=== PATIENT | male | born 1990 | race Hispanic/Latino ===

== ENCOUNTER 2017-09-10 22:13 | Inpatient (IN) | payer BC ==
[2017-09-10 22:52] LABS: #Basophils 0.1 thou/uL (0.0-0.2); #Eosinphils 0.1 thou/uL (0.0-0.7); #Lymphocytes 2.4 thou/uL (1.20-3.40); #Monocytes 0.5 thou/uL (0.11-0.59); #Neutrophils 4.3 thou/uL (1.40-6.50); %Monocytes 6.5 % (0.0-10.0); %Neutrophils 58.4 % (42.0-75.0); Mean Corpuscular HGB CONC 32.4 g/dL (32.0-36.0); Mean Corpuscular Volume 92.6 fl (80.0-94.0); Mean Platelet Volume 7.4 fL (7.4-10.4); Platelet Count 298 thou/uL (130-400); RBC Distribution Width 12.8 % (11.5-14.5); White Blood Cell (WBC) Count 7.4 thou/uL (4.8-10.8)
[2017-09-10 23:12] LABS: Bilirubin Large (Negative); Blood, Urine Negative (Negative); Clarity CLOUDY (Clear); Glucose, Urine (Dipstick) Negative (Negative); Leukocyte Small (Negative); Nitrite Positive (Negative); Protein, Urine (Dipstick) Negative (Neg-Trace); Specific Gravity, Urine 1.023 (1.002-1.036); pH, Urine 5.5 (5.0-9.0)
[2017-09-10 23:16] LABS: Bacteria/HPF None Seen HPF (None Seen); Hyaline Casts/LPF 0-3 HYALINE CAST LPF (0-3 Hyaline); Pathc Cast-AUWi Flag 0.54 (0-2.49); Squamous Epithelial None Seen HPF (0-3)
[2017-09-10 23:21] LABS: ALT (SGPT) 626 U/L (8-55); AST (SGOT) 257 U/L (5-34); Albumin 4.3 g/dL (3.5-5.0); Alkaline Phosphatase 247 U/L (40-150); Anion Gap 17 mmol/L (10-20); BUN (Urea Nitrogen) 12 mg/dL (8.9-20.6); Bilirubin, Total 6.1 mg/dL (0.2-1.2); Calc. Creatinine Clearance 0 mL/min (70-130); Carbon Dioxide 26 mmol/L (22-29); Chloride 102 mmol/L (98-107); Estimated GFR-MDRD Greater than 90; Glucose 121 mg/dL (70-105); Potassium 3.6 mmol/L (3.5-5.1); Protein, Total 8.3 g/dL (6.0-8.3); Sodium 141 mmol/L (136-145)
[2017-09-11] MEDS ORDERED: Ondansetron HCl/PF 4 MG/2 ML Vial ONE (01:23)
[2017-09-11] MEDS ORDERED: Famotidine/PF 20 mg/2ml Vial ONE (01:24)
[2017-09-11] MEDS ORDERED: Morphine 4 MG/ML VIAL ONE (03:02)
[2017-09-11 03:56] LABS: HBCM Index 0.06 S/CO (0-0.79); HBSAg Index 0.18 S/CO (0-0.99); Hep A IgM AB Non-Reactive (NonReactive); Hep A IgM S/CO 0.14 S/CO (0-0.79); Hep B Surf Ag Non-Reactive S/CO (NonReactive); Hep C IgG Ab Non-Reactive (NonReactive); Hep C Index 0.07 S/CO (0-0.79); Hepatitis B Core IGM Abs Non-Reactive (NonReactive)
[2017-09-11] MEDS ORDERED: Ondansetron HCl/PF 4 MG/2 ML Vial IVP PRN (04:15)
[2017-09-11] MEDS ORDERED: Ondansetron ODT 4 MG TAB SL PRN (04:15)
[2017-09-11] MEDS ORDERED: Sodium Chloride 0.9% 1,000 ML IV SCH (04:15)
[2017-09-11] MEDS ORDERED: Acetaminophen 325 MG TAB PO PRN (04:15)
[2017-09-11 04:19] VITALS: BMI 47.0
--- NOTE | 2017-09-11 08:21 | ULT ---
PRELIMINARY REPORT/[facility]/EMERGENCY AFTER HOURS PROCEDURE: EXAM: US Abdomen Limited, Right Upper Quadrant CLINICAL HISTORY: 27 years old, male; Pain and signs and symptoms and abnormal findings; Abnormal lab test; Elevated li shabnam enzymes; Nausea and vomiting and other: Diarrhea; Abdominal pain; Other: Epigastric - radiating t o back TECHNIQUE: Real-time ultrasound of the right upper quadrant with image documentation. COMPARISON: No relevant prior studies available. FINDINGS: Limitations: Limited study due to bowel gas. Liver: Echogenic/fatty. Suboptimal visualization. Gallbladder: Mild sludge. No gallstones. No significant gallbladder wall thickening or pericholecysti c fluid. Positive Pineda's sign. Common bile duct: Dilated measuring up to 0.86 cm in diameter. Questionable sludge within the common bile duct. Pancreas: Obscured by bowel gas. Right kidney: No stones. No solid mass. No hydronephrosis. IMPRESSION: Dilated common bile duct with questionable sludge. Positive Pineda's sign. Mild gallbladder sludge. Thank you for allowing us to participate in the care of your patient. Dictated and Authenticated by: Oziel Jacobs MD 09/11/2017 2:21 AM Central Time ([place] & [place]) GALLBLADDER ULTRASOUND: FINAL REPORT FINDINGS/IMPRESSION: I agree with the preliminary report provided by Dr. Oziel Jacobs of [facility]. POS: [facility]
--- NOTE | 2017-09-11 08:24 | RAD ---
ACUTE ABDOMINAL SERIES: INDICATIONS: Intractable emesis with a history of ulcers. COMPARISON: Prior chest radiograph dated 01/19/2016. FINDINGS: The lungs are clear. The cardiomediastinal silhouette is normal. No pneumothorax or pleural effusio n is evident. No pneumoperitoneum is noted. There is some accentuated calcification seen within the region of the costal cartilage of the right l ower hemithorax. No suspicious calcification is seen overlying the renal collecting systems. The oswaldo wel gas pattern is unobstructed. No acute osseous abnormality is evident. IMPRESSION: No definite acute abnormality. POS: OFF
[2017-09-11] MEDS ORDERED: Milk Of Magnesia 30 ML UDCUP PO PRN (11:14)
[2017-09-11] MEDS ORDERED: Loperamide HCl 2 MG CAP PO PRN (11:14)
[2017-09-11] MEDS ORDERED: cefTRIAXone Sodium 1,000 MG in Syringe 0 ML IVPB SCH (11:14)
[2017-09-11] MEDS ORDERED: HYDROcodone/Acetaminophen 7.5/325 mg Tablet PO PRN (11:14)
[2017-09-11] MEDS ORDERED: hydrALAZINE 20 MG/ML VIAL SLOW IVP PRN (11:14)
--- NOTE | 2017-09-11 11:32 | HP ---
DATE OF ADMISSION: 09/11/2017 PRIMARY CARE PHYSICIAN: Dr. Gillespie. REASON FOR ADMISSION: Abdominal pain, nausea, vomiting. HISTORY OF PRESENT ILLNESS: This is a 27-year-old male with a history of ADHD and gastritis in the p ast, who came to the hospital with above complaints. Patient was evaluated and was found to have terrance vated liver enzymes, and abdominal ultrasound showed gallbladder surgery with dilated gallbladder and he is being admitted. The patient is feeling better with symptomatic medications. Denies any fever . He is complaining of diarrhea. No chest pain or palpitation. No skin rash. No back pain. He de nies any dysuria. He is on medication for fungal nail infection. HOME MEDICATIONS: Fluconazole and Vyvanse. ALLERGIES: No known drug allergies. PAST SURGICAL HISTORY: [place] tooth surgery. CODE STATUS: FULL. SOCIAL HISTORY: Denies any smoking, alcohol, or illicit drug abuse. FAMILY HISTORY: No history of any heart disease. REVIEW OF SYSTEMS: The following complete review of systems was negative, unless otherwise mentioned in the HPI or below: Constitutional: Weight loss or gain, marlon lity to conduct usual activities. Skin: Rash, itching. Eyes: Double vision, pain. ENT/Mouth: No se bleeding, neck stiffness, pain, tenderness. Cardiovascular: Palpitations, dyspnea on exertion, o rthopnea. Respiratory: Shortness of breath, wheezing, cough, hemoptysis, fever or night sweats. Ga strointestinal: Poor appetite, abdominal pain, heartburn, nausea, vomiting, constipation, or diarrhe a. Genitourinary: Urgency, frequency, dysuria, nocturia. Musculoskeletal: Pain, swelling. Neurol ogic/Psychiatric: Anxiety, depression. Allergy/Immunologic: Skin rash, bleeding tendency. PHYSICAL EXAMINATION: GENERAL: This is a morbidly obese male, in no apparent distress. VITAL SIGNS: Currently, temperature 97.6, pulse 67, respiratory rate 16, blood pressure 109/74. HEENT: Atraumatic, normocephalic. Oral mucosa is dry. NECK: Supple. CARDIOVASCULAR: S1, S2 heard. Rate and rhythm regular. RESPIRATORY: Clear. ABDOMEN: Soft. MUSCULOSKELETAL: No edema. DERMATOLOGIC: No skin rash.. NEUROLOGIC: Alert, awake, moving all the extremities. PSYCHIATRIC: Mood and affect normal. LABORATORY DATA: WBC 7.4, potassium 3.6, BUN is 12, creatinine 0.9, AST 257, ALT 626, albumin is 4.3 , lipase 23. UA with pyuria. ASSESSMENT AND PLAN: 1. Abdominal pain with nausea and vomiting with positive Pineda's sign in the ultrasound of his gall bladder. He will have symptomatic care. We will keep him n.p.o., IV fluids, pain control, nausea co ntrol. We will consult Surgery. 2. History of gastritis, seems to be stable. Continue on proton pump inhibitor for now. 3. Deep vein thrombosis prophylaxis. Continue on sequential compression devices. 4. Pyuria. We will check a urine culture and start Rocephin for now. Follow up cultures. Leukocyt osis reported. No dysuria. 6. Elevated liver enzymes, most likely from gallbladder stones and sludge and hepatitis panel was ne gative. 7. Morbid obesity. 8. History of attention deficit hyperactivity disorder. We will hold Vyvanse for now. 9. We will hold other medications and keep him n.p.o., IV fluids, and supportive care. Consult Surg steven. CODE STATUS: FULL. P.r.n. medications and further decision will be made based on the clinical cours e. We will closely monitor the patient in the hospital.
[2017-09-11] MEDS: Morphine 4 MG/ML VIAL SLOW IVP PRN ×2 (12:44→19:35)
[2017-09-11] MEDS: Sodium Chloride 0.9% 1,000 ML IV SCH ×2 (13:00→20:58)
[2017-09-11] MEDS: cefTRIAXone\\ROCEPHIN 1 GM, Syringe 0.4 ML in Sterile Water 9.6 ML SLOW IVP SCH (13:59)
--- NOTE | 2017-09-11 16:17 | CON ---
DATE OF CONSULTATION: 09/11/2017 GI INPATIENT CONSULTATION NOTE REQUESTING PHYSICIAN: Dr. Jennings. REASON FOR CONSULTATION: Biliary sludge and abnormal liver function tests. HISTORY OF PRESENT ILLNESS: Pat Mohan is a 27-year-old man with history of obesity and ADHD. I met him in 01/2016 for complaints of epigastric pain and nausea in the context of recent H. pylori treatment. I performed EGD in 01/2016 and this demonstrated a moderate amount of retained food in t he stomach, but actually normal appearing gastric mucosa. Gastric biopsy showed chronic gastritis, b ut were negative for H. pylori at that time. I had planned to get a gastric emptying study, but he d id not follow up for this. The patient tells me that since then he has generally done okay, but he h as continued to have episodic epigastric pain. He has been controlling this with his diet, pretty mu ch avoiding certain foods; however, he was admitted to the hospital early this morning after signific ant escalation of the pain associated with nausea. Upon presentation, he was found to have elevated LFTs. Note, LFTs were normal on my evaluation, a year and half ago, but now total bilirubin 6.1, ALT up to 626, AST 257. An abdominal ultrasound showed dilation of the common bile duct up to 8.6 mm as well as possible sludge in the common bile duct. There is sludge within the gallbladder, but the ga llbladder itself was nondilated. Pineda sign was positive. The patient is doing well with analgesia and antiemetics. He is currently feeling pretty comfortable. Dr. Jennings evaluated the patient and r ecommended Gastroenterology consultation for consideration of ERCP. REVIEW OF SYSTEMS: Full review of systems including constitutional, head, eyes, ears, nose, throat, GI, , cardiovascular, respiratory, musculoskeletal, and neurologic systems is negative except as no rogelio in the HPI. PAST MEDICAL HISTORY: ADHD, H. pylori gastritis treated 01/2016, obesity. ALLERGIES: No known drug allergies. OUTPATIENT MEDICATIONS: Vyvanse and fluconazole. SOCIAL HISTORY: No smoking, alcohol, or drug use. FAMILY HISTORY: Noncontributory. PHYSICAL EXAMINATION: VITAL SIGNS: Temperature 97.5, pulse 64, blood pressure 126/81, 95% oxygen saturation on room air. GENERAL: A 27-year-old man sitting in bed comfortably, in no acute distress. HEART: Regular rate and rhythm. LUNGS: Clear to auscultation bilaterally. ABDOMEN: Bowel sounds present, soft. Some mild tenderness to palpation in the epigastrium and right upper quadrant, but no guarding or rebound tenderness. EXTREMITIES: No peripheral edema. VESSELS: Radial pulses 2+ bilaterally. NEUROLOGICAL: Cranial nerves II-XII intact bilaterally. No focal deficits. SKIN: No jaundice, no rashes were palpable. EYES: No scleral icterus. Extraocular movements intact. ENT: Mucous membranes moist, no oral lesions. LYMPH: No submandibular or supraclavicular lymphadenopathy. THYROID: Nontender to palpation. LABORATORY STUDIES: WBC 7.4, hemoglobin 15, platelets 298. Sodium 141, potassium 3.6, BUN 12, creat inine 0.95, glucose 121, lipase only 23, total bilirubin 6.1, alk phosphatase 247, AST 257, ALT 626, albumin 4.3. Viral hepatitis serology is negative. ASSESSMENT AND PLAN: 1. Choledocholithiasis. 2. Elevated liver function tests. The patient has biliary sludge visualized in the gallbladder as w ell as in the common bile duct, biliary dilation, and acute LFT elevation, which is all consistent wi th choledocholithiasis. The patient will need ERCP for clearance of the common bile duct and will julio davis need cholecystectomy at some point as well. We will plan for ERCP tomorrow. I discussed the po tential risks of the procedure including post-ERCP pancreatitis. The patient desires to proceed. He can have clear liquids today, but will keep him n.p.o. after midnight for the procedure. Thank you for the consultation. Please call back with questions or concerns.
[2017-09-11] MEDS: Pantoprazole 40 MG VIAL IVP SCH (20:50)
--- NOTE | 2017-09-11 23:41 | CON ---
DATE OF ADMISSION: 09/11/2017 DATE OF CONSULTATION: 09/11/2017 REQUESTING PHYSICIAN: Dr. Cerda. REASON FOR CONSULTATION: Abdominal pain, abnormal liver function tests and ultrasound showing biliary sludge. HISTORY OF PRESENT ILLNESS: A 27-year-old male with history of ADHD and gastritis in the past who saw Dr. Mehdi Harper for treatment of H. pylori in 2015. At that time, EGD was performed. Since that time, he has continued to have periods of abdominal pain associated with food or alcohol intake. In the past few days, he has had increasing abdominal pain, especially with food intake , usually 1 hour after intake of food. Pain is usually relieved by vomiting, which again happens approximately 1 hour after ingestion of food. On admission , he had abdominal ultrasound, which showed dilation of the common bile duct to 8.6 mm and possible sludge in the common bile duct. There was also sludge within the gallbladder. LFTs: ALT 626, AST 257, total bilirubin 6.1. He reports tenderness in the epigastric and right upper quadrant. He is n.p.o. at this time and not currently experiencing abdominal pain. PAST MEDICAL HISTORY: ADHD, H. pylori, gastritis treated in 2016. PAST SURGICAL HISTORY: None. SOCIAL HISTORY: Alcohol, 3 beers and three shots each weekend. Tobacco, 5-6 cigarettes each weekend. Drugs, marijuana use. FAMILY HISTORY: Paternal grandfather with pancreatic cancer. REVIEW OF SYSTEMS: Review of systems was negative except as noted above in HPI. LABORATORY STUDIES: WBC 7.4, hemoglobin 15, platelets 298. Sodium 141, potassium 3.6, BUN 12, creatinine 0.95, glucose 121, lipase 23, total bilirubin 6.1, alkaline phosphatase 247, AST 257, ALT 626. DIAGNOSTIC IMAGING: Abdominal ultrasound findings, gallbladder with mild sludge. No significant gallbladder wall thickening or pericholecystic fluid. Positive Pineda sign. Common bile duct dilated measuring 0.86 cm in diameter. Questionable sludge within the common bile duct. No gallstones are seen on abdominal ultrasound. ASSESSMENT: 1. Abdominal pain. 2. Elevated liver function tests. 3. No gallstone seen on abdominal ultrasound; however, the patient has elevated liver function tests and common bile duct dilation. This is consistent with choledocholithiasis. PLAN: We recommend GI consult - Dr. Harper has been consulted. After speaking with Dr. Harper, he will take the patient to ERCP tomorrow for clearance of the common bile duct. We will re-evaluate after ERCP tomorrow for consideration of cholecystectomy. There is no urgent surgical intervention needed at this time. We will continue to follow with you. Thank you for this consult. The patient was reviewed with Dr. Jennings, attending trauma surgeon, who agrees with the assessment and plan. APOLLO
[2017-09-12 05:30] LABS: #Basophils 0.1 thou/uL (0.0-0.2); #Eosinphils 0.1 thou/uL (0.0-0.7); #Lymphocytes 3.4 thou/uL (1.20-3.40); #Monocytes 0.5 thou/uL (0.11-0.59); #Neutrophils 3.2 thou/uL (1.40-6.50); %Basophils 0.7 % (0.0-1.0); %Eosinophils 1.9 % (0.0-10.0); %Lymphocytes 47.2 % (21.0-51.0); %Monocytes 6.2 % (0.0-10.0); Hemoglobin 13.3 g/dL (14.0-18.0); Mean Corpuscular HGB CONC 31.9 g/dL (32.0-36.0); Mean Corpuscular Hemoglobin 29.8 pg (27.0-31.0); Mean Corpuscular Volume 93.3 fl (80.0-94.0); Mean Platelet Volume 7.5 fL (7.4-10.4); Platelet Count 241 thou/uL (130-400); RBC Distribution Width 12.8 % (11.5-14.5); Red Blood Cell (RBC) Count 4.46 mill/uL (4.70-6.10); White Blood Cell (WBC) Count 7.2 thou/uL (4.8-10.8)
[2017-09-12 05:42] LABS: ALT (SGPT) 441 U/L (8-55); AST (SGOT) 179 U/L (5-34); Albumin 3.5 g/dL (3.5-5.0); Alkaline Phosphatase 210 U/L (40-150); Anion Gap 12 mmol/L (10-20); BUN (Urea Nitrogen) 7 mg/dL (8.9-20.6); Bilirubin, Total 4.2 mg/dL (0.2-1.2); Calc. Creatinine Clearance 279 mL/min (70-130); Calcium 9.3 mg/dL (7.8-10.44); Carbon Dioxide 26 mmol/L (22-29); Chloride 104 mmol/L (98-107); Estimated GFR-MDRD Greater than 90; Globulin 3.2 g/dL (2.4-3.5); Glucose 86 mg/dL (70-105); Potassium 3.7 mmol/L (3.5-5.1); Protein, Total 6.7 g/dL (6.0-8.3); Sodium 138 mmol/L (136-145)
[2017-09-12] MEDS: Sodium Chloride 0.9% 1,000 ML IV SCH ×2 (07:12→15:37)
[2017-09-12] MEDS: Pantoprazole 40 MG VIAL IVP SCH ×2 (09:04→20:51)
--- NOTE | 2017-09-12 11:11 | PRG ---
DATE OF SERVICE: 09/12/2017 SUBJECTIVE: Mr. Mohan is awake and alert. He was admitted with abdominal pain. Diagnoses inclu eneida acute cholecystitis, cholelithiasis, and possible choledocholithiasis. ERCP is pending today. T he patient reports adequate pain control and denies any nausea or vomiting. OBJECTIVE: VITAL SIGNS: Today includes blood pressure 120/80, pulse 68, respiratory 16, maximum temperature in the last 24 hours is 98.0 degrees Fahrenheit, oxygen saturation 96% on room air. HEENT: Reveals normocephalic and atraumatic. The patient has no scleral icterus present. HEART: Reveals regular rate and rhythm. No murmurs or gallops auscultated. LUNGS: Clear to auscultation bilaterally. Breathing is regular and unlabored. ABDOMEN: Soft and obese. He has no significant tenderness to palpation at this time. Liver and spl een remain nonpalpable below costal margins. PERTINENT LABORATORY FINDINGS: Includes a CBC with 7200 white blood cells, hemoglobin 13.3, hematocr it is 41.6, platelet count is 241,000. Metabolic profile: Sodium 138, potassium is 3.7, chloride is 104, bicarbonate is 26, BUN 7, creatinine 0.71, glucose is 86. Total bilirubin is 4.2, AST and ALT 179 and 441 respectively. IMPRESSION: Acute cholecystitis, cholelithiasis, likely choledocholithiasis. PLAN: Laparoscopic cholecystectomy following ERCP. Above findings and plan discussed with the patie nt who indicates understanding of the information given. I answered all his questions.
[2017-09-12] MEDS ORDERED: Midazolam HCl 2 mg/2 ml Vial ONE ×2 (11:26→13:48)
[2017-09-12] MEDS ORDERED: Iothalamate Meglumine 60% 50 ML VIAL FS ONE ×2 (11:43→13:45)
[2017-09-12] MEDS ORDERED: Fentanyl 100 MCG/2 ML VIAL ONE ×2 (11:52→16:53)
[2017-09-12] MEDS ORDERED: Indomethacin 50 MG SUPP ONE (12:50)
[2017-09-12] MEDS: cefTRIAXone\\ROCEPHIN 1 GM, Syringe 0.4 ML in Sterile Water 9.6 ML SLOW IVP SCH (13:28)
[2017-09-12] MEDS ORDERED: PHENYLEPHRINE-NS 100 MCG/ML 10 ML SYRINGE ONE (13:35)
[2017-09-12] MEDS ORDERED: PROPOFOL 200 MG/20 ML VIAL ONE (13:35)
[2017-09-12] MEDS ORDERED: Succinylcholine Chloride 20 MG/ML 10 ml SYRINGE FS ONE (13:35)
[2017-09-12] MEDS ORDERED: Lidocaine 1% PF 5 ML VIAL ONE (13:35)
[2017-09-12] MEDS ORDERED: Ondansetron HCl/PF 4 MG/2 ML Vial ONE (13:36)
[2017-09-12] MEDS ORDERED: Dexamethasone 20 MG/5 ML VIAL ONE (13:36)
[2017-09-12] MEDS ORDERED: Ketorolac Tromethamine 30 MG/ML VIAL ONE (13:36)
[2017-09-12] MEDS ORDERED: Glycopyrrolate 0.2 MG/ML 5 ML SYRINGE ONE (13:36)
[2017-09-12] MEDS ORDERED: Bupivacaine/Epinephrine 0.25% 30 ML VIAL ONE (13:45)
--- NOTE | 2017-09-12 15:28 | RAD ---
ERCP: History: Biliary obstruction. Acute cholecystitis. FINDINGS: Intraoperative fluoroscopy is provided for ERCP. Single spot fluoroscopic image shows endoscopic cath eter overlying the duodenum. There is contrast opacification of a common duct that is upper limits of normal in caliber. Small rounded filling defects are present within the distal common duct, estimate d at 0.7 cm diameter. There is irregular elongated filling defect involving the left hepatic duct. POS: [facility]
[2017-09-12] MEDS ORDERED: traMADol HCl 50 MG TAB PO PRN (16:01)
[2017-09-12] MEDS ORDERED: Promethazine HCl 25 MG/ML VIAL SLOW IVP PRN (16:20)
[2017-09-12] MEDS ORDERED: Meperidine HCl/PF 25 MG/ML VIAL SLOW IVP PRN (16:20)
[2017-09-12] MEDS ORDERED: Morphine Sulfate 2 MG/ML SYRINGE SLOW IVP PRN (16:20)
[2017-09-12] MEDS ORDERED: HYDROmorphone 2 MG/ML VIAL SLOW IVP PRN (16:20)
--- NOTE | 2017-09-12 16:57 | OP ---
DATE OF PROCEDURE: 09/12/2017 SURGEON: Mehdi Harper M.D. FAMILY [employer] LEGAL ASSISTANT SURGEON: None. PROCEDURES: Endoscopic retrograde cholangiopancreatography with biliary sphincterotomy and stone ext raction. INDICATIONS: 1. Choledocholithiasis. 2. Elevated liver function tests. MEDICATIONS: 1. See anesthesia record. 2. Indomethacin 100 mg per rectum. FINDINGS: After discussion of the risks, benefits and alternatives of the procedure, informed consen t was obtained and witnessed. Pre-endoscopic cardiopulmonary examination was satisfactory. Timeout was performed before sedation was achieved. Sedation was achieved with anesthesia assistance in the endoscopy unit. The patient was placed in a prone position on the fluoroscopy table. A Pentax adult side-viewing duodenoscope was passed through the mouth beyond the esophagus and stomach and into the second portion of the duodenum. The ampulla was brought into view with the endoscope in the short p osition, the ampulla appeared normal. Using a triple lumen done tip sphincterotome and a 0.035 guide wire, we selectively cannulated the common bile duct. The wire was passed up into the left intrahepa tic system. Cholangiogram was then performed. This demonstrated two small filling defects in the di stal common bile duct. At this point, the sphincterotome was withdrawn to the level of the ampulla a nd a generous biliary sphincterotomy was performed. The sphincterotome was then exchanged for a 9-12 mm extraction balloon. Multiple sweeps were made of the common bile duct with the balloon fully inf lated. In this fashion, we were able to extract 2 small dark pigmented stones from the common bile d uct as well as a small amount of biliary sludge. Occlusion cholangiogram demonstrated no persistent filling defects in the common bile duct. One final sweep was then made to sweep out excess contrast from the common bile duct. At this point, the procedure was completed. Note that the cystic duct di d not fill on the cholangiogram. The working apparatus was completely withdrawn. The endoscope was withdrawn suctioning out excess air and fluid and the procedure was completed. The patient did recei ve 100 mg of rectal indomethacin suppositories as prophylaxis against post-ERCP pancreatitis. The pa tient tolerated the procedure well. There were no immediate post-procedure complications. The place ment was kept under general anesthesia with plan to proceed to the operating room with Dr. Jennings for cholecystectomy under the same anesthesia. IMPRESSION: Choledocholithiasis, status post successful endoscopic retrograde cholangiopancreatograp hy with biliary sphincterotomy and balloon extraction of 2 small stones and sludge from the common bi le duct. RECOMMENDATIONS: 1. Proceed with cholecystectomy as already per the surgical service. 2. Monitor for potential complications including post-ERCP pancreatitis.
[2017-09-12] MEDS: Ketorolac Tromethamine 30 MG/ML VIAL IVP SCH ×2 (17:33→22:50)
[2017-09-12] MEDS: Acetaminophen 500 MG TAB PO SCH ×2 (17:50→22:49)
--- NOTE | 2017-09-12 18:11 | PDOC.PN ---
- Subjective Encounter Start Date: 09/12/17 Encounter Start Time: 18:10 Subjective: Seen and examined post ERCP--doing ok -: C/o pain and nausea - Objective Resuscitation Status: Resuscitation Status FULL:Full Resuscitation Vital Signs & Weight: Vital Signs (12 hours) Temp Pulse Resp BP Pulse Ox 09/12/17 08:05 97.6 F 68 16 120/80 96 09/12/17 08:00 97.6 F 68 16 Weight Admit Weight 282 lb 13.648 oz Weight 282 lb 13.648 oz I&O: 09/11/17 09/12/17 09/13/17 06:59 06:59 06:59 Intake Total 250 1200 Balance 250 1200 Result Diagrams: 09/12/17 04:38 09/12/17 04:38 Phys Exam - Physical Examination Constitutional: NAD HEENT: PERRLA, moist MMs, TM's clear, oral pharynx no lesions, 2+ tonsils +jaundice Neck: no nodes, no JVD, supple, full ROM Respiratory: no wheezing, no rales, no rhonchi, clear to auscultation bilateral Cardiovascular: no rub Gastrointestinal: soft, non-tender, no distention, positive bowel sounds Musculoskeletal: no edema, pulses present Dx/Plan (1) Cholecystitis with cholelithiasis Code(s): K80.10 - CALCULUS OF GALLBLADDER W CHRONIC CHOLECYST W/O OBSTRUCTION Status: Acute (2) Obesity Code(s): E66.9 - OBESITY, UNSPECIFIED Status: Acute (3) Transaminitis Code(s): R74.0 - NONSPEC ELEV OF LEVELS OF TRANSAMNS & LACTIC ACID DEHYDRGNSE Status: Acute - Plan PT/OT Appreciate surgery and GI input -: Had a succesful ERCP--monitor for potential pancreatitis -: Lap Cholecystectomy per surgery -: Pain management-symptomatic nausea treatment * .
[2017-09-12] MEDS ORDERED: Morphine 2 MG/ML SYRINGE SLOW IVP PRN (18:27)
[2017-09-12] MEDS ORDERED: Morphine 4 MG/ML VIAL SLOW IVP PRN (18:27)
[2017-09-12] MEDS ORDERED: Ondansetron HCl/PF 4 MG/2 ML Vial IVP PRN (18:28)
[2017-09-12] MEDS: traMADol HCl 50 MG TAB PO PRN (20:53)
--- NOTE | 2017-09-12 21:43 | OP ---
DATE OF OPERATION: 09/12/2017 PREOPERATIVE DIAGNOSES: 1. Acute cholecystitis with cholelithiasis. 2. Choledocholithiasis. 3. Status post endoscopic retrograde cholangiopancreatography with common bile duct stone extraction . POSTOPERATIVE DIAGNOSES: 1. Acute cholecystitis with cholelithiasis. 2. Choledocholithiasis. 3. Status post endoscopic retrograde cholangiopancreatography with common bile duct stone extraction . PROCEDURE PERFORMED: Laparoscopic cholecystectomy. SURGEON: Dwayne Jennings D.O. ANESTHESIA: General endotracheal. ESTIMATED BLOOD LOSS: 50 mL FLUIDS GIVEN: 1600 mL crystalloids. SPONGE AND INSTRUMENT COUNT: Certified as correct x2. COMPLICATIONS: None apparent at the time of operation. INDICATIONS FOR PROCEDURE: This is a 27-year-old morbidly obese man who presented with recurrent epi gastric to right upper quadrant abdominal pain. Clinical and radiographic examination was consistent with acute cholecystitis with cholelithiasis and choledocholithiasis. The patient underwent ERCP wi th common bile duct stone extraction. He is brought to the operating room for post-ERCP, laparoscopi c cholecystectomy. Findings are consistent with gallbladder in the usual anatomic location partially encased by omental adhesions. DESCRIPTION OF OPERATION: Informed consent was obtained from the patient for laparoscopic cholecyste ctomy. The patient first underwent ERCP with common bile duct stone extraction, following which he w as brought to the operating room for laparoscopic cholecystectomy. Once general anesthesia was estab lished, the abdomen was sterilely prepped and draped in the usual fashion. Previous Villar catheter w as placed to bedside drain. The skin below the umbilicus was infiltrated with 0.25% Marcaine with ep inephrine. Curvilinear infraumbilical incision is made using an 11 scalpel. Umbilical stalk was gra sped with Anita's and elevated. Veress needle inserted through the incision and placed in the perit bob cavity through which the abdomen was insufflated with 3 liters of CO2 gas. Intra-abdominal pre ssure noted at 2 mmHg. Following abdominal insufflation, Veress needle was removed, a 5 mm trocar wa s introduced into the peritoneal cavity using a Visiport under laparoscopy. Laparoscopy confirmed pr oper placement of the port, no injuries to underlying structures. Additional laparoscopy reveals gal lbladder in the usual anatomic location partially encased by omental adhesions. Under direct laparos copy a 12 mm epigastric and two 5 mm right lateral subcostal ports were placed after the overlying sk in was infiltrated with 0.25% Marcaine with epinephrine and appropriate incision was made. The patie nt was placed in the reverse Trendelenburg position, rotated to his left. I introduced the [place] dissector from the epigastric port site using this to take down omental adhesions. Prestige grasper was introduced through the right lateral subcostal port grasping the fundus of the gallbladder which was elevated cephalad. Omental adhesions were then completely taken down from the remainder of the g allbladder. A second Prestige grasper introduced through the right medial subcostal port grasping th e Ventura's pouch which was retracted laterally. Cystic duct was carefully dissected free from surro unding structures and divided between clips. Two clips were applied proximally and one clip was appl ied at the junction of the cystic duct and gallbladder. Cystic artery was also dissected free from s urrounding structures and divided between clips in a similar fashion. The gallbladder itself was rem emile from the liver bed using cautery. Gallbladder is delivered off the abdominal cavity using an En doCatch. Operative site was inspected for good hemostasis. All clips remained in place. Gallbladde r fossa had some venous ooze. Hemostasis readily achieved using a 1 x 2 inch piece of fibula. Findi ng no other pathology, laparoscopy was terminated. Fascia of the epigastric port site closed using 0 Vicryl suture and Endo closure device under laparoscopy. The abdomen was desufflated. All ports an d instruments removed and accounted for. Skin incisions closed using 4-0 Monocryl suture in subcutic ular fashion. Dermabond was applied to the incisions. The patient tolerated the operation without a ny apparent complications and returned to recovery room in satisfactory condition.
[2017-09-13] MEDS: Sodium Chloride 0.9% 1,000 ML IV SCH (01:11)
[2017-09-13 04:43] VITALS: TEMP 97.5
[2017-09-13] MEDS: Ketorolac Tromethamine 30 MG/ML VIAL IVP SCH ×2 (05:25→11:21)
[2017-09-13] MEDS: Acetaminophen 500 MG TAB PO SCH ×2 (05:26→11:21)
[2017-09-13 05:32] LABS: #Basophils 0.1 thou/uL (0.0-0.2); #Lymphocytes 1.7 thou/uL (1.20-3.40); #Monocytes 0.7 thou/uL (0.11-0.59); #Neutrophils 8.6 thou/uL (1.40-6.50); %Basophils 0.6 % (0.0-1.0); %Eosinophils 0.1 % (0.0-10.0); %Lymphocytes 15.5 % (21.0-51.0); %Monocytes 5.9 % (0.0-10.0); %Neutrophils 77.9 % (42.0-75.0); Hemoglobin 12.9 g/dL (14.0-18.0); Mean Corpuscular HGB CONC 31.7 g/dL (32.0-36.0); Mean Corpuscular Hemoglobin 29.4 pg (27.0-31.0); Mean Corpuscular Volume 92.7 fl (80.0-94.0); Mean Platelet Volume 7.4 fL (7.4-10.4); Platelet Count 248 thou/uL (130-400); RBC Distribution Width 12.6 % (11.5-14.5); Red Blood Cell (RBC) Count 4.38 mill/uL (4.70-6.10); White Blood Cell (WBC) Count 11.1 thou/uL (4.8-10.8)
[2017-09-13 05:53] LABS: ALT (SGPT) 400 U/L (8-55); AST (SGOT) 151 U/L (5-34); Albumin 3.5 g/dL (3.5-5.0); Alkaline Phosphatase 217 U/L (40-150); Bilirubin, Direct 1.6 mg/dL (0.1-0.3); Bilirubin, Total 2.5 mg/dL (0.2-1.2); Lipase 8 U/L (8-78); Protein, Total 6.9 g/dL (6.0-8.3)
--- NOTE | 2017-09-13 09:01 | PRG ---
DATE OF SERVICE: 09/13/2017 ATTENDING PHYSICIAN: Dr. Dwayne Jennings. This is Isabel Garcia NP dictating daily progress note for Dr. Dwayne Jennings. SUBJECTIVE: The patient is status post laparoscopic cholecystectomy. He has been stable on the floor. There have been no overnight issues. He remained afebrile. Pain is well controlled. He is tolerating clear liquid diet. He is ambulatory. He has had return of bowel function. LFTs trending down. OBJECTIVE: VITAL SIGNS: Temperature 97.5, pulse 60, respirations 17, O2 sat 93%, and blood pressure 127/85. GENERAL: Well-developed, well-nourished male lying in bed, in no acute distress. PULMONARY: Bilateral breath sounds clear to auscultation. No respiratory distress. CARDIOVASCULAR: Regular rate and rhythm. Heart sounds normal. ABDOMEN: Soft. Mild incisional tenderness. No masses, no signs of infection. MUSCULOSKELETAL: Moves all extremities well, up walking around on the floor. NEUROLOGIC: GCS 15. Awake, alert, oriented x3. ASSESSMENT: 1. Acute cholecystitis, cholelithiasis, and choledocholithiasis. 2. Status post endoscopic retrograde cholangiopancreatography. 3. Status post laparoscopic cholecystectomy. 4. Elevated liver function tests, trending down. PLAN: The patient is progressing favorably status post laparoscopic cholecystectomy. He is tolerating diet. Bowel function has returned. He may be discharged from a trauma acute care surgical standpoint. He may follow up in the trauma clinic in 2 weeks with repeat LFTs. He should not return to work until cleared in follow up appointment. The patient was seen and examined with Dr. Dwayne Jennings, who agrees with the assessment and plan. [facility] CENTERLeo
[2017-09-13] MEDS: Pantoprazole 40 MG VIAL IVP SCH (09:03)
[2017-09-13] MEDS: traMADol HCl 50 MG TAB PO PRN (09:03)
[2017-09-13 09:06] VITALS: BP 122/80
--- NOTE | 2017-12-18 15:22 | DIS ---
For details of the history and physical, consultative notes and procedure notes, please refer to dict ations on record. SUMMARY: This is a 27-year-old gentleman who presented with abdominal pain and got diagnosed with ch olecystitis. The patient was seen in consultation by both Gastroenterology and Surgical Service. ER CP was recommended. The patient did undergo a laparoscopic cholecystectomy. The patient tolerated t he procedure very well, was monitor for possible post-ERCP pancreatitis. Having maintained sustained clinical improvement the patient subsequently was discharged. DISCHARGE MEDICATIONS: Colace 150 mg p.o. daily, tramadol 100 mg p.o. q.6h. p.r.n. DISCHARGE INSTRUCTIONS: 1. Follow up with the primary care physician. 2. Stay compliant with medication. 3. Represent here in case of any relapse or deterioration in clinical condition. 4. The patient to follow up with Surgery. The total time spent including face to face encounter 31 minutes.
== END 2017-09-13 12:30 | disposition home or self-care (01) | DRG 418 ==
LOC: ERS 22:13 → SURG A 09-11 02:57
PROVIDERS: ADMIT Internal Medicine; ATTEND Internal Medicine
PROC: 0FT44ZZ Resection of Gallbladder, Percutaneous Endoscopic Approach (ICD-10-PCS; principal; 2017-09-12)
PROC: 0F798ZZ Dilation of Common Bile Duct, Via Natural or Artificial Opening Endoscopic (ICD-10-PCS; 2017-09-12)
PROC: BF101ZZ Fluoroscopy of Bile Ducts using Low Osmolar Contrast (ICD-10-PCS; 2017-09-12)
PROC: 0FC98ZZ Extirpation of Matter from Common Bile Duct, Via Natural or Artificial Opening Endoscopic (ICD-10-PCS; 2017-09-12)
DX: K80.66 Calculus of gallbladder and bile duct with acute and chronic cholecystitis without obstruction (principal); Z68.42 Body mass index [BMI] 45.0-49.9, adult; E66.01 Morbid (severe) obesity due to excess calories; N39.0 Urinary tract infection, site not specified; F90.9 Attention-deficit hyperactivity disorder, unspecified type; F17.210 Nicotine dependence, cigarettes, uncomplicated
CPT/HCPCS: 36415; 74022; 74330; 76705; 80053; 80074; 80076; 81003; 81015; 83690; 85025; 87086; 88304; 96361; 96374; 96375; A4216; C9113; J0696; J1100; J1885; J2001; J2250; J2270; J2405; J2704; J3010; Q9961; S0028

== ENCOUNTER 2021-05-04 18:07 | Emergency (ER) | payer BC | END 2021-05-04 18:20 | disposition left against medical advice (07) | LOC: ERS 18:07 | DX: Z53.21 Procedure and treatment not carried out due to patient leaving prior to being seen by health care provider (principal) ==